=== PATIENT | male | born 1960 | race Asian ===

== ENCOUNTER 2023-12-28 06:02 | Day surgery (SDC) | payer OTHER ==
[~2023-12-28] VITALS: Ht 177.8 cm; Wt 66.4 kg
[2023-12-28] MEDS ORDERED: LIDOCAINE 4% 50 ML SOLUTION TP ONE (06:03)
[2023-12-28] MEDS ORDERED: BENZOCAINE 20% 50 MCG/SPRAY 57 GM TP ONE (06:03)
[2023-12-28] MEDS ORDERED: LIDOCAINE 2% 11 ML JELLY TP ONE (06:03)
[2023-12-28] MEDS ORDERED: SODIUM CHLORIDE 0.9% 1,000 ML ONE (06:46)
[2023-12-28] MEDS ORDERED: ALBU18HF12 IH (07:54)
[2023-12-28] MEDS ORDERED: BECL10.62 IH (07:54)
[2023-12-28] MEDS ORDERED: OMEP20CA12 PO (07:54)
[2023-12-28] MEDS ORDERED: ESCI-8 PO (07:54)
[2023-12-28] MEDS ORDERED: MONT-40 PO (07:54)
[2023-12-28] MEDS ORDERED: MIDAZOLAM HCL 2 MG/2 ML VIAL ONE (08:01)
[2023-12-28] MEDS ORDERED: FentaNYL CITRATE PF 100 MCG/2 ML VIAL ONE (08:01)
[2023-12-28] MEDS: SODIUM CHLORIDE 0.9% 1,000 ML IV ONE (08:23)
[2023-12-28 09:10] VITALS: PULSE 68; RESP 12; O2SAT 100
[2023-12-28] MEDS ORDERED: MethylPREDNISolone SOD SUCC 125 MG/2 ML VIAL ONE (09:31)
[2023-12-28] MEDS: MethylPREDNISolone SOD SUCC 125 MG/2 ML VIAL IVP ONE (09:38)
== END 2023-12-28 11:15 | disposition home or self-care (01) ==
LOC: SURGERY 06:02
PROVIDERS: ATTEND Internal Medicine Critical Care Medicine
DX: R05.3 Chronic cough (principal); J38.4 Edema of larynx; B37.0 Candidal stomatitis; R06.2 Wheezing; R49.0 Dysphonia; J84.10 Pulmonary fibrosis, unspecified; J98.8 Other specified respiratory disorders; J98.09 Other diseases of bronchus, not elsewhere classified; Z85.21 Personal history of malignant neoplasm of larynx; Z86.16 Personal history of COVID-19
CPT/HCPCS: 31623; 87206; 87101; 87220; 87070; 88108; 31624; 71045; 87015; J3010; J2250; J2919; Q9967; J7030; Z7610

== ENCOUNTER 2024-02-01 06:01 | Day surgery (SDC) | payer OTHER ==
[~2024-02-01] VITALS: Ht 177.8 cm; Wt 66.3 kg
[~2024-02-01 06:01] MED LIST: ALBU18HF12 IH; BECL10.62 IH; ESCI-8 PO; MONT-40 PO; OMEP20CA12 PO
[2024-02-01] MEDS ORDERED: BENZOCAINE 20% 50 MCG/SPRAY 57 GM TP ONE (06:02)
[2024-02-01] MEDS ORDERED: LIDOCAINE 2% 11 ML JELLY TP ONE (06:02)
[2024-02-01] MEDS ORDERED: LIDOCAINE 4% 50 ML SOLUTION TP ONE (06:02)
[2024-02-01] MEDS ORDERED: ALBUTEROL SULFATE 2.5 MG/0.5 ML NEB SOLUTION NEB ONE (06:02)
[2024-02-01] MEDS ORDERED: SODIUM CHLORIDE 0.9% 1,000 ML ONE (07:32)
[2024-02-01] MEDS ORDERED: MIDAZOLAM HCL 2 MG/2 ML VIAL ONE (07:49)
[2024-02-01] MEDS ORDERED: FentaNYL CITRATE PF 100 MCG/2 ML VIAL ONE (07:55)
[2024-02-01] MEDS: SODIUM CHLORIDE 0.9% 1,000 ML IV ONE (08:26)
[2024-02-01 09:15] VITALS: PULSE 64; RESP 18; O2SAT 96
[2024-02-01] MEDS ORDERED: MethylPREDNISolone SOD SUCC 125 MG/2 ML VIAL ONE (09:53)
[2024-02-01] MEDS: MethylPREDNISolone SOD SUCC 125 MG/2 ML VIAL IVP ONE (09:57)
== END 2024-02-01 14:15 | disposition home or self-care (01) ==
LOC: SURGERY 06:01
PROVIDERS: ATTEND Internal Medicine Critical Care Medicine
DX: R05.3 Chronic cough (principal); J38.4 Edema of larynx; B37.0 Candidal stomatitis; R04.2 Hemoptysis; J84.10 Pulmonary fibrosis, unspecified; J98.8 Other specified respiratory disorders; J98.09 Other diseases of bronchus, not elsewhere classified; Z85.21 Personal history of malignant neoplasm of larynx
CPT/HCPCS: 31623; 31624; 71045; 87015; 87070; 87101; 87206; 87220; 88108; J2250; J2919; J3010; J7030; J7613; Z7610